=== PATIENT | female | born 1955 | race Caucasian/White ===

== ENCOUNTER 2021-01-02 09:55 | Outpatient (CLI) | payer MEDICARE | END 2021-01-02 09:56 | disposition home or self-care (01) | LOC: BICMAMMO 09:55 | PROVIDERS: ATTEND Physician Assistant | DX: Z12.31 Encounter for screening mammogram for malignant neoplasm of breast (principal); Z13.820 Encounter for screening for osteoporosis; Z78.0 Asymptomatic menopausal state; Z85.830 Personal history of malignant neoplasm of bone | CPT/HCPCS: 77063; 77067; 77080 ==

== ENCOUNTER 2023-01-27 10:26 | Outpatient (CLI) | payer MEDICARE | END 2023-01-27 10:27 | disposition home or self-care (01) | LOC: BICMAMMO 10:26 | PROVIDERS: ATTEND Physician Assistant | DX: Z12.31 Encounter for screening mammogram for malignant neoplasm of breast (principal); Z13.820 Encounter for screening for osteoporosis; Z78.0 Asymptomatic menopausal state; M85.88 Other specified disorders of bone density and structure, other site; Z80.3 Family history of malignant neoplasm of breast; Z85.830 Personal history of malignant neoplasm of bone | CPT/HCPCS: 77063; 77067; 77080 ==